=== PATIENT | male | born 1955 | race Caucasian/White ===

== ENCOUNTER 2023-02-24 13:41 | Emergency (ER) | payer OTHER ==
[~2023-02-24] VITALS: Ht 180.3 cm; Wt 106.6 kg
[2023-02-24] MEDS ORDERED: DEXAMETHASONE SOD PHOSPHATE 4 MG/ML 1ML VIAL IM ONE (18:00)
[2023-02-24] MEDS ORDERED: BUDESONIDE 0.5 MG/2 ML INH IH SCH (18:00)
[2023-02-24 18:53] VITALS: PULSE 58; RESP 12
[2023-02-24] MEDS ORDERED: BENZ-39 PO (19:20)
[2023-02-24] MEDS ORDERED: ALBUHFA IH (19:20)
[2023-02-24] MEDS ORDERED: BUDE90AE IH (19:20)
[2023-02-24] MEDS ORDERED: METH4TAB3 PO (19:20)
[2023-02-24 20:02] VITALS: BP 128/78; PULSE 60; RESP 16; O2SAT 96
== END 2023-02-24 20:12 | disposition home or self-care (01) ==
LOC: EDH 13:41
DX: R05.9 Cough, unspecified (principal); J20.8 Acute bronchitis due to other specified organisms; I10 Essential (primary) hypertension; Z79.51 Long term (current) use of inhaled steroids
CPT/HCPCS: 99283; 71045; 96372; 94640; J1100 ×2